=== PATIENT | female | born 1970 | race Caucasian/White ===

== ENCOUNTER 2016-10-25 15:51 | Emergency (ER) | payer OTHER ==
[2016-10-25 16:12] LABS: % BASOPHILS 0.4 % (0.0-2.0); % EOSINOPHILS 3.3 % (0.0-5.0); % LYMPHOCYTES 25.1 % (20.0-50.0); % MONOCYTES 9.6 % (2.0-10.0); % NEUTROPHILS 61.6 % (40.0-80.0); HEMATOCRIT 38.5 % (35.0-45.0); MEAN CELL VOLUME 102.4 fl (81-100); MEAN CORPUSCULAR HEMOGLOBIN 34.4 pg (27.0-31.0); MEAN CORPUSCULAR HGB CONC 33.6 pg (28.0-36.0); MEAN PLATELET VOLUME 7.5 fl; NEUTROPHILE ABSOLUTE 3.7 Th/cmm (1.8-8.0); PLATELET COUNT 250 Th/cmm (150-400); RED BLOOD COUNT 3.76 Mil/cmm (3.80-5.10)
[2016-10-25 16:30] LABS: ALB/GLOB RATIO 1.4 (1.0-1.8); ALKALINE PHOSPHATASE 27 U/L (34-104); ANION GAP 6.4 (7.0-16.0); BILIRUBIN,TOTAL 0.3 mg/dL (0.3-1.0); BUN - UREA NITROGEN 14 mg/dL (7-25); BUN/CREATININE RATIO 17.5; CALCIUM SERUM 9.2 mg/dL (8.6-10.3); CARBON DIOXIDE 27.4 mEq/L (21.0-31.0); CHLORIDE 103 mEq/L (98-107); CREATININE - SERUM 0.8 mg/dL (0.6-1.2); GLUCOSE 130 mg/dL (70-105); SGOT 16 U/L (13-39); SGPT/ALT 9 U/L (7-52); SODIUM SERUM 134 mEq/L (136-145)
[2016-10-25 16:33] LABS: POTASSIUM SERUM 2.8 mEq/L (3.5-5.1)
[2016-10-25] MEDS ORDERED: Potassium Chloride Elixir 20 mEq /15 mL UDC GT ONE (16:33)
[2016-10-25] MEDS ORDERED: Potassium Chloride Elixir 20 mEq /15 mL UDC PO ONE (16:37)
[2016-10-25] MEDS ORDERED: Potassium Chloride Elixir 20 mEq /15 mL UDC ONE (16:38)
[2016-10-25 16:57] LABS: URINE BILIRUBIN NEGATIVE (NEGATIVE); URINE BLOOD MODERATE (NEGATIVE); URINE GLUCOSE (UA) NEGATIVE (NEGATIVE); URINE KETONE NEGATIVE (NEGATIVE); URINE PH 6.5 (4.6 - 8.0); URINE PROTEIN NEGATIVE (NEGATIVE)
[2016-10-25 17:00] LABS: URINE COLOR YELLOW
[2016-10-25 17:01] LABS: URINE BACTERIA FEW /hpf (NONE SEEN); URINE EPITHELIAL CELLS MODERATE /lpf (FEW); URINE WBC 0-2 /hpf (0-5)
--- NOTE | 2016-10-25 17:02 | ED Physician Chart ---
Chief Complaint/HPI - Patient Information Date Seen:: 10/25/16 Time Seen:: 16:17 Chief Complaint:: LEFT FLANK PAIN History of Present Illness:: THIS IS A 46 YO FEMALE WHO STATES THAT OVER THE LAST FEW MONTH SHE STARTED GETTING DISCOMFORT IN HER LEFT FLANK AREA THAT HURTS WHEN SHE BENDS OVER WITH HEMATURIA. SHE DENIES RENAL STONES, OLD TRAUMA. SHE HAS A BREAST IMPLANT WITH A REDUCTION OF BOTH BREAST. SHE DENIES A COUGH, FEVER OR SPUTUM. SHE DOES SMOKE,. Allergies:: Allergies Allergy/AdvReac Type Severity Reaction Status Date / Time No Known Allergies Allergy Verified 10/25/16 16:15 Vitals:: Vital Signs - 8 hr 10/25/16 16:15 Temp 98.3 F HR 98 RR 18 BP 118/74 O2 Sat % 99 Historian:: Patient Review:: Nurse's Note Reviewed Review of Systems - Review of Systems General/Constitutional: No fever, No chills, No weight loss, No weakness, No diaphoresis, No edema, No loss of appetite Skin: No skin lesions, No rash, No bruising Head: No headache, No light-headedness Eyes: No loss of vision, No pain, No diplopia ENT: No earache, No nasal drainage, No sore throat, No tinnitus Neck: No neck pain, No swelling, No thyromegaly, No stiffness, No mass noted Cardio Vascular: No chest pain, No palpitations, No PND, No orthopnea, No edema Pulmonary: No SOB, No cough, No sputum, No wheezing GI: No nausea, No vomiting, No diarrhea, No pain, No melena, No hematochezia, No constipation, No hematemesis, Other (LEFT FLANK DISCOMFORT) G/U: No dysuria, No frequency, No hematuria Musculoskeletal: No bone or joint pain, No back pain, No muscle pain Endocrine: No polyuria, No polydipsia Psychiatric: No prior psych history, No depression, No anxiety, No suicidal ideation Hematopoietic: No bruising, No lymphadenopathy Allergic/Immuno: No urticaria, No angioedema Neurological: No syncope, No focal symptoms, No weakness, No paresthesia, No headache, No seizure, No dizziness, No confusion, No vertigo Past Medical History - Past Medical History Obtainable: Yes Past Medical History: No significant medical hx Family History: None Social History: Smoker, Alcohol, No Drug Use, Surgical History: other (BREAST REDUCTION AND LIFT) Family Medical History - Family Member Mother History Unknown: Yes Physical Exam - Physical Examination General/Constitutional: Awake, Well-developed, well-nourished, Alert, No distress, GCS 15, Non-toxic appearing, Ambulatory Head: Atraumatic Eyes: Lids, conjuctiva normal, PERRL, EOMI Skin: Nl inspection, No rash, No skin lesions, No ecchymosis, Well hydrated, No lymphadenopathy ENMT: External ears, nose nl, Nasal exam nl, Lips, teeth, gums nl Neck: Nontender, Full ROM w/o pain, No JVD, No nuchal rigidity, No bruit, No mass, No stridor Respiratory: Nl effort/Exclusion, Clear to Auscultation, No Wheeze/Rhonchi/Rales Cardio Vascular: RRR, No murmur, gallop, rubs, NL S1 S2 GI: No organomegaly, No hernia, Normal BS's, Nondistended, No mass/bruits, No McBurney tenderness Other GI comments:: TENDERNESS IN THE LEFT FLANK : No CVA tenderness Extremities: No tenderness or effusion, Full ROM, normal strength in all extremities, No edema, Normal digits & nails Neuro/Psych: Alert/oriented, DTR's symmetric, Normal sensory exam, Normal motor strength, Judgement/insight normal, Mood normal, Normal gait, No focal deficits Misc: normal gait, Normal back, No paraspinal tenderness Labs/Radiology/EKG Results - Lab Results Results: Laboratory Tests 10/25/16 10/25/16 10/25/16 16:05 16:05 16:05 WBC 6.0 RBC 3.76 L Hgb 13.0 Hct 38.5 MCV 102.4 H MCH 34.4 H MCHC Differential 33.6 RDW 13.0 Plt Count 250 MPV 7.5 Neutrophils % 61.6 Lymphocytes % 25.1 Monocytes % 9.6 Eosinophils % 3.3 Basophils % 0.4 Sodium 134 L Potassium 2.8 L* Chloride 103 Carbon Dioxide 27.4 Anion Gap 6.4 L BUN 14 Creatinine 0.8 Est GFR ( Amer) > 60.0 Est GFR (Non-Af Amer) > 60.0 BUN/Creatinine Ratio 17.5 Glucose 130 H Calcium 9.2 Total Bilirubin 0.3 AST 16 ALT 9 Alkaline Phosphatase 27 L Troponin I < 0.01 L Total Protein 6.9 Albumin 4.0 Globulin 2.9 Albumin/Globulin Ratio 1.4 POC Ur Test 10/25/16 16:34 WBC RBC Hgb Hct MCV MCH MCHC Differential RDW Plt Count MPV Neutrophils % Lymphocytes % Monocytes % Eosinophils % Basophils % Sodium Potassium Chloride Carbon Dioxide Anion Gap BUN Creatinine Est GFR ( Amer) Est GFR (Non-Af Amer) BUN/Creatinine Ratio Glucose Calcium Total Bilirubin AST ALT Alkaline Phosphatase Troponin I Total Protein Albumin Globulin Albumin/Globulin Ratio POC Ur Test Negative - Radiology Results Results: CT SCAN OF THE LUMBOSACRAL SPINE = LS DISC DISEASE OF T-12TO L1 = DISTENDED STOMACH = INCREASE FECES = DISTENDED BLADDER Assessment - Assessment General Assessment: T12-L1 DISC DISEASE HEMATURIA DISTENDED STOMACH ED Septic Shock - . Is Septic Shock (SBP<90, OR Lactate>4 mmol\L) present?: No - <6hrs of presentation: Vital Signs: Vital Signs - 8 hr 10/25/16 16:15 Temp 98.3 F HR 98 RR 18 BP 118/74 O2 Sat % 99 Reassessment (Disposition) - Reassessment Reassessment Condition:: Unchanged - Diagnosis Diagnosis:: T12-L1 DISC DISEASE HEMATURIA LOW KCL DISTENDED STOMACH CONSTIPATION - Aftercare/Follow up Instructions Aftercare/Follow-Up Instructions:: Counseled pt regarding lab results/diagnosis & need follow up, Refer to Discharge Instructions, Counseled pt & family regarding lab results/diagnosis & need follow up - Patient Disposition Discharge/Transfer:: Home Condition at Disposition:: Unchanged ED Discharge Plan - Patient Disposition Admit/Discharge/Transfer: PT DISCHARGED HOME Condition at Disposition: Improved Additional Instructions: SPOKE TO HER PMD WHO WANTS TO SEE HER WITH THE TEST RESULTS IN THE AM.
[2016-10-25 17:16] LABS: AMPHETAMINE URINE POSITIVE (NEGATIVE); BARBITURATES URINE NEGATIVE (NEGATIVE); METHADONE URINE NEGATIVE (NEGATIVE)
[2016-10-25] MEDS ORDERED: IOHEXOL 300MG/ML 100 ML VIAL ONE (17:17)
--- NOTE | 2016-10-26 08:07 | Diagnostic Imaging Report ---
CT scan abdomen and pelvis with intravenous contrast HISTORY: Pain Total DLP equals 450 CTDI equals 9.4 Following administration of intravenous contrast, axial sections were obtained from the xiphoid process down to the pubic symphysis. The liver exhibits a homogeneous parenchyma. No focal lesions. The spleen appears normal. No focal abnormality seen in the region of the pancreas. No focal renal lesions. No hydronephrosis. The exam of the pelvis demonstrates preservation of normal fat planes. No abnormal soft tissue masses or abnormal fluid collections are no abnormality seen in the region of the appendix. There is mildly distended stool-filled transverse and descending colon. IMPRESSION: 1. Mildly distended stool-filled descending colon 2. No other acute abnormalities
== END 2016-10-25 19:05 | disposition home or self-care (01) ==
LOC: ER 15:51
DX: M48.8X5 Other specified spondylopathies, thoracolumbar region (principal); R31.9 Hematuria, unspecified; E87.6 Hypokalemia; K31.89 Other diseases of stomach and duodenum; K59.00 Constipation, unspecified; F17.200 Nicotine dependence, unspecified, uncomplicated
CPT/HCPCS: 36415-UA; 80053-TC; 80307; 81001-TC; 81025-TC; 84443-TC; 84484-TC; 85025-TC; Q9967